=== PATIENT | female | born 1980 | race African-American/Black ===

== ENCOUNTER 2024-05-29 15:25 | Emergency (ER) | payer BC, MEDICAID ==
[~2024-05-29] VITALS: Ht 165.1 cm; Wt 81.1 kg
[2024-05-29] MEDS: cloNIDine HCL 0.1 MG TAB PO ONE (16:32)
[2024-05-29 16:50] LABS: Basophils # (auto) 0.1 10 ^3/uL (0-0.2); Eosinophils # (auto) 0.8 10 ^3/uL (0-0.8); Lymphocytes # (auto) 3.8 10 ^3/uL (0.4-5.4); Lymphocytes % (auto) 42.1 % (10.0-50.0); Mean Corpuscular Hemoglobin 25.4 pg (28.0-32.0); Mean Corpuscular Hgb Conc. 31.6 g/dL (32.0-36.0); Neutrophils # (auto) 3.8 10 ^3/uL (1.6-8.6); Nucleated Red Blood Cells % 0.1 %; White Blood Cell 9.1 10^3/uL (4.4-10.8)
[2024-05-29 16:52] LABS: Eosinophils % (auto) 8.6 % (0.0-7.0); Hematocrit 37.8 % (36.0-46.0); Hemoglobin 11.9 g/dL (12.2-16.2); Mean Corpuscular Volume 80.5 fL (80.0-100.0); Monocytes # (auto) 0.6 10 ^3/uL (0-1.3); Monocytes % (auto) 6.2 % (0.0-12.0); Neutrophils % (auto) 42.1 % (37.0-80.0); Platelet Count (auto) 422 10^3/uL (140-450); Red Cell Distribution Width 16.8 % (11.8-14.3)
[2024-05-29 17:01] LABS: Chloride 106 mmol/L (98-107); Potassium 3.5 mmol/L (3.5-5.1); Sodium 137 mmol/L (136-145)
[2024-05-29 17:02] LABS: Anion Gap 6 (5-15); Carbon Dioxide 25 mmol/L (20-30)
[2024-05-29 17:03] LABS: Calcium 10.1 mg/dL (8.7-10.4)
[2024-05-29 17:08] LABS: BUN/Creatinine Ratio 8.8 (10.0-20.0); Blood Urea Nitrogen 8 mg/dL (9-23); Glucose 98 mg/dL (74-106)
[2024-05-29] MEDS ORDERED: CLON0.1T PO (18:57)
[2024-05-29 20:15] VITALS: BP 149/99; PULSE 69; RESP 18; TEMP 98.1; O2SAT 96
== END 2024-05-29 20:15 | disposition home or self-care (01) ==
LOC: ER 15:27
DX: I10 Essential (primary) hypertension (principal); Z88.0 Allergy status to penicillin; Z88.8 Allergy status to other drugs, medicaments and biological substances
CPT/HCPCS: 36415; 71045; 80048; 83880; 84484; 85025